=== PATIENT | male | born 2000 | race Two or more races ===

== ENCOUNTER 2022-09-27 16:29 | Emergency (ER) | payer MEDICAID, OTHER ==
[~2022-09-27] VITALS: Ht 172.7 cm; Wt 149.2 kg
[2022-09-27 17:12] VITALS: BP 151/101
[2022-09-27] MEDS ORDERED: FLUORESCEIN SOD OPTH TEST STRIP RIGHTEYE ONE (17:30)
[2022-09-27] MEDS ORDERED: TETRACAINE HCL 0.5% OPTH(EYE) SOLN 4ML RIGHTEYE ONE (17:30)
[2022-09-27] MEDS ORDERED: ERY05OO OP (17:34)
== END 2022-09-27 17:45 | disposition home or self-care (01) ==
LOC: ER 16:29
DX: S05.01XA Injury of conjunctiva and corneal abrasion without foreign body, right eye, initial encounter (principal); Z88.0 Allergy status to penicillin; X58.XXXA Exposure to other specified factors, initial encounter; Y93.89 Activity, other specified; Y92.89 Other specified places as the place of occurrence of the external cause; Y99.8 Other external cause status